=== PATIENT | male | born 2000 | race Asian ===

== ENCOUNTER 2023-07-26 01:27 | Emergency (ER) | payer OTHER ==
[~2023-07-26] VITALS: Ht 170.2 cm; Wt 59.1 kg
[2023-07-26 01:33] VITALS: TEMP 97.9
[2023-07-26 03:35] VITALS: BP 127/77; PULSE 75; RESP 18
== END 2023-07-26 03:36 | disposition home or self-care (01) ==
LOC: EMS 01:29
DX: R58 Hemorrhage, not elsewhere classified (principal); Z90.89 Acquired absence of other organs
CPT/HCPCS: 99282; Z7502